=== PATIENT | male | born 1970 | race Two or more races ===

== ENCOUNTER 2024-01-21 08:50 | Emergency (ER) | payer OTHER ==
[~2024-01-21] VITALS: Ht 167.6 cm; Wt 61.2 kg
[2024-01-21 09:50] VITALS: BP 131/81; TEMP 98.3; O2SAT 98
== END 2024-01-21 09:50 | disposition home or self-care (01) ==
LOC: ER 09:00
DX: S29.012A Strain of muscle and tendon of back wall of thorax, initial encounter (principal); E78.5 Hyperlipidemia, unspecified; V49.49XA Driver injured in collision with other motor vehicles in traffic accident, initial encounter; Y93.89 Activity, other specified; Y92.488 Other paved roadways as the place of occurrence of the external cause; Y99.8 Other external cause status